=== PATIENT | female | born 2000 | race Caucasian/White ===

== ENCOUNTER 2019-10-14 11:32 | Emergency (ER) | payer OTHER, SELFPAY ==
[2019-10-14 11:42] VITALS: BP 126/88; PULSE 94; RESP 15; TEMP 37; O2SAT 100; BMI 22.6
--- NOTE | 2019-10-14 11:58 | DI.CT.S_ITS ---
PROCEDURE: CT HEAD/BRAIN WO CON INDICATIONS: hit head, ?syncope, dizzy/ lightheaded TECHNIQUE: Noncontrast 4.5 mm thick angled axial sections acquired from the foramen magnum to the vertex, with coronal and sagittal reformats. For radiation dose reduction, the following was used: automated exposure control, adjustment of mA and/or kV according to patient size. COMPARISON: [facility], CT, CT CERVICAL SPINE WO CON, 10/14/2019, 12:11. FINDINGS: Image quality: Diagnostic. There is mild streak artifact from metallic hair clips. CSF spaces: Basal cisterns are patent. No extra-axial fluid collections. Ventricles are normal in size and shape. Brain: No midline shift. No intracranial masses or hemorrhage. Capone-white matter interface is normal. Skull and face: Calvarium and visualized facial bones are intact, without suspicious lesions. Sinuses: Visualized sinuses and mastoids are clear. IMPRESSION: No acute intracranial process is seen. Dictated by: Norberto Davies M.D. on 10/14/2019 at 11:29 Approved by: Norberto Davies M.D. on 10/14/2019 at 11:30
--- NOTE | 2019-10-14 12:01 | DI.CT.S_ITS ---
PROCEDURE: CT CERVICAL SPINE WO CON INDICATIONS: c spine pain sp fall onto metal shelf TECHNIQUE: Noncontrast 3 mm thick sections acquired from the skull base to the T4 level. Sagittal and coronal reformats were then constructed. For radiation dose reduction, the following was used: automated exposure control, adjustment of mA and/or kV according to patient size. COMPARISON: [facility], CT, CT HEAD/BRAIN WO CON, 10/14/2019, 12:11. FINDINGS: Image quality: Excellent. Bones: No fractures or dislocations. Visualized superior ribs are intact. Soft tissues: Prevertebral soft tissues are normal in thickness. No paravertebral hematomas. No apical pneumothoraces. IMPRESSION: Normal study. No fracture. Dictated by: Norbetro Davies M.D. on 10/14/2019 at 11:30 Approved by: Norberto Davies M.D. on 10/14/2019 at 11:31
--- NOTE | 2019-10-14 12:10 | ED.NECK ---
HPI - Neck Pain/Injury <LORENZA Macdonald - Last Filed: 10/14/19 15:30> General Chief Complaint: Neck Pain/Injury Stated Complaint: got slammed in a metal container, door blew shut Time Seen by Provider: 10/14/19 11:48 Source: patient Mode of arrival: Ambulatory Limitations: no limitations History of Present Illness HPI Narrative: The patient is a teary female nonsmoker with history of insomnia who presents with a chief complaint of head and neck pain. 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 She states she is not sure whether not she passed out, complains of pain with the neck meets the head.She complains of dizziness, lightheadedness, nausea with no vomiting. She states that the shelf that she had was metal. She denies any numbness or tingling, denies any incontinence of bowel or bladder, and complains of midline C-spine pain. She has not taken anything to feel better. She does complain of severe headache. She was driven to the emergency department today. Related Data Previous Rx's Medication Instructions Recorded cyclobenzaprine 10 mg PO TID PRN #20 tab 10/14/19 ketorolac 10 mg PO TID PRN 5 Days #15 tab 10/14/19 Allergies Allergy/AdvReac Type Severity Reaction Status Date / Time Penicillins Allergy Verified 10/14/19 11:42 Review of Systems <LORENZA Macdonald - Last Filed: 10/14/19 15:30> Review of Systems Narrative: GENERAL: Denies chills, fatigue, malaise, fever, sweats. HEENT: Denies sinus pain, ear pain, sore throat, difficulty swallowing, dizziness. RESPIRATORY: Denies dyspnea, cough, wheezing, hemoptysis, sputum. CARDIOVASCULAR: Denies chest pain, palpitations, orthopnea, edema, GASTROINTESTINAL: Denies nausea, vomiting, abdominal pain, diarrhea, constipation, melena. : Denies dysuria, frequency, incontinence, hematuria, urinary retention. MUSCULOSKELETAL: See HPI SKIN: Denies rash, skin lesions, or other NEUROLOGIC: See HPI PSYCHIATRIC: No concerning psychosocial issues. 12 point review of systems is negative except for those stated above Exam <[facility] - Last Filed: 10/14/19 15:30> Narrative Exam Narrative: GENERAL: This is a well-nourished, well-developed patient, tearful appears anxious in C-collar HEAD: Atraumatic. Normocephalic. No temporal or scalp tenderness. EYES: Pupils equal round and reactive. Extraocular motions intact. No scleral icterus. No injection or drainage. ENT: Nose without bleeding, purulent drainage or septal hematoma. Throat without erythema, tonsillar hypertrophy or exudate. Uvula midline. Airway patent. NECK: Trachea midline. No JVD or lymphadenopathy. Supple, nontender, no meningeal signs. CARDIOVASCULAR: Regular rate and rhythm RESPIRATORY: Clear to auscultation. Breath sounds equal bilaterally. No wheezes, rales, or rhonchi. No cough. No increased respiratory effort. GASTROINTESTINAL: Abdomen soft, non-tender, nondistended. No hepato-splenomegaly, or palpable masses. No guarding. EXTREMITIES: No clubbing, cyanosis, or edema. No joint tenderness, effusion, or edema noted. BACK: Pain to midline C-spine palpation. No pain to T or L-spine palpation. No palpable deformity or crepitance. No flank tenderness. NEURO: AOx3. Clear speech. Stable gait. Strength is equal upper and lower extremities bilaterally SKIN: No rash or erythema visible skin. No erythema rash ecchymosis laceration or abrasion noted on neck or face. No periorbital ecchymosis. No Clayton signs. Initial Vital Signs Initial Vital Signs: Vital Signs Temperature 98.6 F 10/14/19 11:42 Pulse Rate 94 H 10/14/19 11:42 Respiratory Rate 15 10/14/19 11:42 Blood Pressure 126/88 10/14/19 11:42 Pulse Oximetry 100 10/14/19 11:42 <Concetta Gonzalez MD - Last Filed: 10/14/19 16:32> Initial Vital Signs Initial Vital Signs: Vital Signs Temperature 98.6 F 10/14/19 11:42 Pulse Rate 94 H 10/14/19 11:42 Respiratory Rate 15 10/14/19 11:42 Blood Pressure 126/88 10/14/19 11:42 Pulse Oximetry 100 10/14/19 11:42 Course <ANTONI Macdonald - Last Filed: 10/14/19 15:30> Orders Ordered: ED Orders 10/14/19 11:58 CT head/brain wo con Stat 10/14/19 12:01 CT cervical spine wo con Stat Discontinued Medications Cyclobenzaprine HCl (Flexeril) 10 mg PO NOW ONE Stop: 10/14/19 13:33 Last Admin: 10/14/19 13:47 Dose: 10 mg Documented by: GERMAINE Ketorolac Tromethamine (Toradol) 30 mg IM NOW ONE Stop: 10/14/19 13:33 Last Admin: 10/14/19 13:47 Dose: 30 mg Documented by: GERMAINE Vital Signs Vital signs: Vital Signs - 8 hr 10/14/19 11:42 10/14/19 13:29 10/14/19 15:07 Temperature 98.6 F Pulse Rate 94 H 71 77 Respiratory Rate 15 12 16 Blood Pressure 126/88 120/81 Blood Pressure [Left Arm] 113/70 Pulse Oximetry 100 100 <Concetta Gonzalez MD - Last Filed: 10/14/19 16:32> Orders Ordered: ED Orders 10/14/19 11:58 CT head/brain wo con Stat 10/14/19 12:01 CT cervical spine wo con Stat Discontinued Medications Cyclobenzaprine HCl (Flexeril) 10 mg PO NOW ONE Stop: 10/14/19 13:33 Last Admin: 10/14/19 13:47 Dose: 10 mg Documented by: GERMAINE Ketorolac Tromethamine (Toradol) 30 mg IM NOW ONE Stop: 10/14/19 13:33 Last Admin: 10/14/19 13:47 Dose: 30 mg Documented by: GERMAINE Vital Signs Vital signs: Vital Signs - 8 hr 10/14/19 11:42 10/14/19 13:29 10/14/19 15:07 Temperature 98.6 F Pulse Rate 94 H 71 77 Respiratory Rate 15 12 16 Blood Pressure 126/88 120/81 Blood Pressure [Left Arm] 113/70 Pulse Oximetry 100 100 MDM - Neck Pain/Injury <ANTONI Macdonald - Last Filed: 10/14/19 15:30> Lab Data Labs: Point of Care Testing Test Results Negative Urine Dip Bedside Urine Glucose Negative Bedside Urine Bilirubin - Negative Bedside Urine Ketone - Negative Urine Specific Oglesby 1.015 Bedside Urine Occult Blood + Bedside Urine pH 6.0 Bedside Urine Protein - Negative Bedside Urine Urobilinogen +/- 1mg Bedside Urine Nitrite - Negative Bedside Urine Leukocytes - Negative Esterase Imaging Data CT C-spine: Radiologist's impression: [address] [address] [address] Scan Report Signed Patient: Mayra Manning EMR#: [id number] : 2000Acct:[id number] Age/Sex: 19 / FDate of Service: 10/14/19 Loc: ED Accession Number: [id number] Procedure: CT cervical spine wo con Ordering Provider: Johnna Zepeda PROCEDURE: CT CERVICAL SPINE WO CON INDICATIONS: c spine pain sp fall onto metal shelf TECHNIQUE: Noncontrast 3 mm thick sections acquired from the skull base to the T4 level. Sagittal and coronal reformats were then constructed. For radiation dose reduction, the following was used: automated exposure control, adjustment of mA and/or kV according to patient size. COMPARISON: Located [facility], CT, CT HEAD/BRAIN WO CON, 10/14/2019, 12:11. FINDINGS: Image quality: Excellent. Bones: No fractures or dislocations. Visualized superior ribs are intact. Soft tissues: Prevertebral soft tissues are normal in thickness. No paravertebral hematomas. No apical pneumothoraces. IMPRESSION: Normal study. No fracture. Dictated by: Norberto Davies M.D. on 10/14/2019 at 11:30 Approved by: Norberto Davies M.D. on 10/14/2019 at 11:31 CT scan - head: Radiologist's impression: [facility] DATE TYPE STATUS AUTHOR Hx 10/14/19 12:01 Norberto Davies 10/14/19 11:58 Norberto Davies Mayra Manning 19, F1 [facility] ER, Main ED 167.64cm 63.503kg BMI: 22.6kg/m? Neck Pain/Injury Search Chart No Data to Display ONSET Today 15:07 Mayra Manning 19 F [address] [address] [address] Scan Report Signed Patient: Mayra Manning EMR#: [id number] : 2000Acct:[id number] Age/Sex: 19 / FDate of Service: 10/14/19 Loc: ED Accession Number: [id number] Procedure: CT head/brain wo con Ordering Provider: Johnna Zepeda PROCEDURE: CT HEAD/BRAIN WO CON INDICATIONS: hit head, ?syncope, dizzy/ lightheaded TECHNIQUE: Noncontrast 4.5 mm thick angled axial sections acquired from the foramen magnum to the vertex, with coronal and sagittal reformats. For radiation dose reduction, the following was used: automated exposure control, adjustment of mA and/or kV according to patient size. COMPARISON: Located [facility], CT, CT CERVICAL SPINE WO CON, 10/14/2019, 12:11. FINDINGS: Image quality: Diagnostic. There is mild streak artifact from metallic hair clips. CSF spaces: Basal cisterns are patent. No extra-axial fluid collections. Ventricles are normal in size and shape. Brain: No midline shift. No intracranial masses or hemorrhage. Capone-white matter interface is normal. Skull and face: Calvarium and visualized facial bones are intact, without suspicious lesions. Sinuses: Visualized sinuses and mastoids are clear. IMPRESSION: No acute intracranial process is seen. Dictated by: Norberto Davies M.D. on 10/14/2019 at 11:29 Approved by: Norberto Davies M.D. on 10/14/2019 at 11:30 MDM Narrative Medical decision making narrative: The patient is a 19-year-old female who presented to the emergency department after hitting her head on a metal shelf when a door closed on her. She thought she may have lost consciousness, complaint of dizziness, lightheadedness etc.. Given that I cannot clear her C-spine by nexus criteria, her C-spine was CT after being placed in a collar. This came back with no acute findings. Given the extensiveness of her symptoms, I did obtain a CT of her head which came back with no acute findings. However she was noted to have some repetitive questioning afterwards, indicating a possible closed head injury. I gave her a work note for several days off of work, encouraged follow-up with primary care provider in the next few days. She was given Toradol and Flexeril in the emergency department, felt much improved from her neck pain and requested to go home. I discussed at length coming back to the ER for any acute concerns. Patient has no questions or concerns upon discharge and states understanding of return precautions and follow-up care. She was discharged home with a ride. <Concetta Gonzalez MD - Last Filed: 10/14/19 16:32> Lab Data Labs: Point of Care Testing Test Results Negative Urine Dip Bedside Urine Glucose Negative Bedside Urine Bilirubin - Negative Bedside Urine Ketone - Negative Urine Specific Oglesby 1.015 Bedside Urine Occult Blood + Bedside Urine pH 6.0 Bedside Urine Protein - Negative Bedside Urine Urobilinogen +/- 1mg Bedside Urine Nitrite - Negative Bedside Urine Leukocytes - Negative Esterase Discharge Plan Departure Patient Disposition: Home Clinical Impression: Acute neck pain Closed head injury Qualifiers: Encounter type: initial encounter Qualified Code(s): S09.90XA - Unspecified injury of head, initial encounter Discharge Date/Time: 10/14/19 15:07 Instructions: DI for Closed Head Injury, DI for Neck Pain Activity Restrictions/Additional Instructions: Today your CTs of your head and neck came back with no acute findings Please follow-up with primary care provider in the next few days I have sent 2 prescriptions to [facility] in [place]. I have given you a prescription of Toradol. This is an NSAID. Do not combine it with other NSAIDs such as Aleve or ibuprofen. I suggest taking it with some food, as it can irritate your stomach. Please be aware that Flexeril the muscle lacks or can be sedating I have given you a work note Please come back to the emergency department for any acute concerns Prescriptions: New ketorolac 10 mg tablet 10 mg PO TID PRN (Reason: pain) 5 Days Qty: 15 RF: 0 cyclobenzaprine 10 mg tablet 10 mg PO TID PRN (Reason: muscle spasm) Qty: 20 RF: 0 Referrals: Sebastián Laboy [Non-Staff] - Stand Alone Forms: Work Release Note
[2019-10-14 13:29] VITALS: BP 113/70; PULSE 71; RESP 12
[2019-10-14] MEDS: KETOROLAC 60 MG/2 ML VIAL 30 MG IM (13:47)
[2019-10-14] MEDS: CYCLOBENZAPRINE 10 MG TABLET PO (13:47)
[2019-10-14 15:07] VITALS: BP 120/81; PULSE 77; RESP 16; O2SAT 100
== END 2019-10-14 15:07 | disposition home or self-care (01) ==
PROVIDERS: Emergency Provider Nurse Practitioner Family
DX: S09.90XA Unspecified injury of head, initial encounter (principal); M54.2 Cervicalgia; W22.8XXA Striking against or struck by other objects, initial encounter
CPT/HCPCS: 70450; 72125; 81003; 81025; 96372; 99283; 99284; J1885

== ENCOUNTER → 2021-03-19 14:14 | Outpatient (CLI) | payer OTHER, SELFPAY ==
[2021-03-19 15:23] LABS: Appearance Urine UA CLEAR; Bilirubin Urine UA NEGATIVE (NEGATIVE); Color Urine UA YELLOW; Glucose Urine UA NEGATIVE (Negative); Ketones Urine UA NEGATIVE (NEGATIVE); Leukocyte Esterase Urine UA NEGATIVE (NEGATIVE); Nitrite Urine UA NEGATIVE (Negative); Occult Blood Urine UA NEGATIVE (Negative); Protein Urine UA NEGATIVE (Negative); Specific Gravity Urine UA 1.025 (1.000-1.035)
[2021-03-19 15:40] LABS: pH Urine UA 6.5 (4.5-8.0)
[2021-03-19 15:46] LABS: Add Manual Diff / Slide Review NO; Basophils Absolute Auto 0 /uL (0-100); Basophils Percent Auto 0.1 % (0-2); Eosinophils Absolute Auto 0 /uL (0-450); Eosinophils Percent Auto 0.4 % (2-4); Hematocrit 36.3 % (36-46); Hemoglobin 12.4 g/dL (12.0-16.0); Lymphocytes Absolute Auto 2300 /uL (1100-4500); Lymphocytes Percent Auto 36.1 % (25-40); Mean Corpuscular HGB Conc 34.2 % (30-36); Mean Corpuscular Hemoglobin 30.2 PG (26-34); Mean Corpuscular Volume 88.3 fL (80-100); Monocytes Absolute Auto 500 /uL (0-900); Monocytes Percent Auto 7.5 % (3-14); Neutrophils Absolute Auto 3500 /uL (1500-7000); Neutrophils Percent Auto 55.9 % (50-75); Platelet Count 164 X10^3/uL (150-400); Red Blood Cell Count 4.11 X10^6/uL (4.0-5.2); Red Cell Distribution Width 12.6 % (11.6-14.8); White Blood Cell Count 6.3 X10^3/uL (4.5-11.0)
[2021-03-20 06:47] LABS: RPR Screen Non Reactive (Non Reactive)
[2021-03-20 10:36] LABS: Varicella IgG Antibody 782 index (Immune >165)
[2021-03-20 20:03] LABS: Hepatitis B Surface Antigen NEGATIVE s/c (NEGATIVE); Rubella Antibody IgG 24.3 IU/mL (>15)
[2021-03-20 20:20] LABS: HIV 1 & 2 Ab/Ag 4th Gen Combo NEGATIVE (NEGATIVE); Hep C Virus Ab w/Reflex Quant NEGATIVE s/c (NEGATIVE)
== END ==
PROVIDERS: Referring Provider Family Medicine; Visit Provider Family Medicine
DX: Z34.01 Encounter for supervision of normal first pregnancy, first trimester (principal)
CPT/HCPCS: 36415; 80055; 81003; 86787; 86803; 86850; 86900; 86901; 87086; 87389

== ENCOUNTER → 2021-05-18 16:17 | Outpatient (CLI) | payer OTHER, SELFPAY ==
[2021-05-22 19:25] LABS: AFP, Serum 51.4 ng/mL (.); Calc Gestational Age EDD (.); Estriol, Free 2.63 ng/mL (.); Inhibin A, Dimeric 113.11 pg/mL (.); Inhibin A, MoM 0.73 (.); Maternal Ethnicity Caucasian (.); Maternal Weight 156 lbs (.); Number of Fetuses No (.); OSBR Risk 1 IN 7850 (.); Results Report (.); Test Results *Screen Negative* (.); hCG, MoM 1.55 (.); hCG, Serum 40982 mIU/mL (.)
== END ==
PROVIDERS: PCP Internal Medicine; Referring Provider Family Medicine; Visit Provider Family Medicine
DX: Z34.90 Encounter for supervision of normal pregnancy, unspecified, unspecified trimester (principal); Z3A.18 18 weeks gestation of pregnancy
CPT/HCPCS: 36415; 82105; 82677; 84702; 86336

== ENCOUNTER → 2021-05-30 15:31 | Outpatient (CLI) | payer OTHER, SELFPAY ==
--- NOTE | 2021-05-30 15:33 | DI.US.S_ITS ---
PROCEDURE: US OB >= 14 WEEKS FETUS INDICATIONS: ANATOMY SCREENING OUTSIDE/PRIOR DATING DATA: Last menstrual period (LMP): 12/16/20. LMP-based estimated date of delivery (JANN): 09/22/21 . First dating scan (date and location): 05/30/21, this study . Estimated date of delivery (JANN) from first dating scan: 10/14/21 . TECHNIQUE: Real-time scanning was performed of the fetus, with image documentation and biometric measurements. Endovaginal scanning: Not needed COMPARISON: None. FINDINGS: General: A single living intrauterine gestation is present. Presentation: Breech. Placenta: Placental position is posterior , without previa. Amniotic fluid index: 10.4 cm, normal range is 5-24 cm. heart rate: 135 beats per minute. Maternal cervical canal: 3.5 cm long. Normal lower limit is 2.5 cm. biometrics: Biparietal diameter: 4.7 cm, 20 weeks 0 days Head circumference: 18.0 cm, 20 weeks 2 days Abdominal circumference: 163 mm, 21 weeks 2 days Femur length: 3.2 cm, 20 weeks 0 days Estimated gestational age from initial scan: not applicable. Composite gestational age from present scan: 20 weeks 3 days Estimated weight: 370 g Measurement variability for biometric dating: +/- 7 days from 14 weeks to 15 weeks 6 days gestation, +/- 10 days from 16 weeks to 21 weeks 6 days gestation, +/- 2 weeks from 22 weeks to 27 weeks 6 days gestation, +/- 3 weeks for 28 weeks gestation or later. weight reference: 4500 g or EFW >90/95% is considered macrosomia or large for gestational age. EFW <10% is small for gestational age. EFW 5% or less is considered intra-uterine growth restriction. Anatomic survey: Neuro: Ventricles are non-dilated at less than 10 mm. Cisterna magna is normal at 3-11 mm. Cerebellum is normal in size and morphology. Nuchal skin fold: Normal at less than 6 mm between 14-21 weeks gestational age. Face: Nose and lips, facial profile are normal. Spine: Not well seen. Heart: 4-chambered heart is present, with normal ventricular outflow tracts. Diaphragm: Diaphragm is intact. Stomach: Left-sided stomach is present. Kidneys: Not well seen. Cord: 3-vessel cord has orthotopic insertion. Bladder: Normal in size. Extremities: All 4 extremities identified. IMPRESSION: positioning results in suboptimal anatomy scan. Follow-up assessment to complete the anatomic survey is recommended to evaluate the spine and renal regions bilaterally. Dictated by: Osbaldo Bales M.D. on 05/31/2021 at 13:40 Approved by: Osbaldo Bales M.D. on 05/31/2021 at 13:44
== END ==
PROVIDERS: PCP Internal Medicine; Referring Provider Family Medicine; Visit Provider Family Medicine
DX: Z3A.20 20 weeks gestation of pregnancy; Z34.92 Encounter for supervision of normal pregnancy, unspecified, second trimester
CPT/HCPCS: 76811

== ENCOUNTER → 2021-06-14 15:59 | Outpatient (CLI) | payer OTHER, SELFPAY ==
--- NOTE | 2021-06-14 16:02 | DI.US.S_ITS ---
PROCEDURE: US OB FOLLOW UP INDICATIONS: F/U AREAS NOT VISUALIZED ON PRIOR US OUTSIDE/PRIOR DATING DATA: Last menstrual period (LMP): 12/16/2020. LMP-based estimated date of delivery (JANN): 09/22/2021 . First dating scan (date and location): 05/30/2021 . Estimated date of delivery (JANN) from first dating scan: 10/14/2021 . TECHNIQUE: Real-time scanning was performed of the fetus, with image documentation. Endovaginal scanning: No COMPARISON: [facility], , US OB >= 14 WEEKS FETUS, 05/30/2021, 14:57. FINDINGS: A single living intrauterine gestation is present. Presentation: Breech. Placenta: Placental position is posterior , without previa. Amniotic fluid index: 13.9 cm, normal range is 5-24 cm. heart rate: 147 beats per minute. Maternal cervical canal: 3.8 cm long. Normal lower limit is 2.5 cm. Estimated gestational age from initial scan: 22 weeks 4 days Normal appearance of the kidneys. Sacral spine again not well seen. . IMPRESSION: Single living IUP redemonstrated and the kidneys are within normal limits and the sacral spine is again not well seen secondary to positioning. Dictated by: Alexandro Martel RR Interpreted: Osbaldo Bales MD on 06/15/2021 at 10:34 Transcribed by: JOSE ANGEL on 06/15/2021 at 10:48 Approved by: Osbaldo Bales M.D. on 06/15/2021 at 15:09
== END ==
PROVIDERS: PCP Internal Medicine; Referring Provider Student in an Organized Health Care Education/Training Program; Visit Provider Student in an Organized Health Care Education/Training Program
DX: Z36.2 Encounter for other antenatal screening follow-up (principal); Z3A.22 22 weeks gestation of pregnancy
CPT/HCPCS: 76816

== ENCOUNTER 2021-07-09 15:45 | Outpatient (CLI) | payer OTHER, SELFPAY ==
--- NOTE | 2021-07-09 16:21 | P.TNLD_ITS ---
Visit Information Visit Information Date of evaluation: 07/09/21 Primary OB Provider: Usha Jackson Reason for Evaluation: Yes rupture of membranes Comments/Additional reasons for admission: 20yo at 25w5d here for concern for ROM. The pt reports that for the past week she has been intermittently leaking clear, odorless fluid. No cramping, vaginal bleeding. She is feeling her baby move regularly. [facility] Medical History (Updated 07/09/21 @ 17:10 by Usha Jackson MD) Anxiety (~2019) Atypical squamous cells of undetermined significance (ASCUS) on Papanicolaou smear of cervix (~08/25/20) Depression (~2019) H/O CT scan (~09/2019) Heart murmur (~99) Migraine (~2014) Nexplanon insertion Nexplanon removal (~12/27/20) Persistent insomnia (~2017) infant, growing well (~99) PTSD (post-traumatic stress disorder) (~2019) Surgical History (Updated 03/16/21 @ 12:26 by Mili Ledezma RN) [place] teeth extracted (~2017) Family History (Updated 03/16/21 @ 12:39 by Mili Ledezma RN) Mother Cervical cancer Adopted (not a blood relative) Father Myocardial infarction Hypertension Hyperlipidemia Stented coronary artery Grandmother Unknown family medical history Grandfather Unknown family medical history Grandmother No problems noted. Grandfather Diabetes mellitus Hyperlipidemia Hypertension Pacemaker Brother Diabetes mellitus Brother Deafness congenital Social History marital status: number of children: 0 household members: spouse lives independently: Yes caregiver/support person: No housing: house pets and animals: Yes (Getting a dog soon: aware of safety. 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 ) special giacomo needs: No seatbelt use: always do you feel safe at home: Yes Smoking Status: Former smoker (Quit with diagnosis.) Tobacco: How many years used: 2 second hand exposure: Yes (Her parents smoked her entire life in home & car. No current exposure. ) alcohol intake: former (Occasional, maybe once a month.) substance use type: does not use during the past year weight has: remained stable well-balanced diet: about half the time daily servings fruits/ve-4 caffeine: No Type(s) of exercise: normal ROM and activity (Active at work, lifting but nothing too heavy. ) frequency: does not exercise Evaluation Evaluation Baseline heart rate: 130 Variability: Moderate (11-25) monitor accelerations: Present Monitor Decelerations: Absent Non-invasive Membranes Rupture Test: negative Diagnosis, Plan/Disposition Final Diagnosis (1) 25 weeks gestation of : Status: Acute Plan/Disposition Plan: 20yo at 25w5d here for concern of ROM. Amniosure negative. No evidence of ROM. Safe for d/c home. OB Disposition: home
== END 2021-07-09 16:24 | disposition home or self-care (01) ==
LOC: OB 07-12 06:32
PROVIDERS: PCP Internal Medicine; Referring Provider Family Medicine; Visit Provider Family Medicine
DX: Z03.71 Encounter for suspected problem with amniotic cavity and membrane ruled out (principal); Z3A.25 25 weeks gestation of pregnancy
CPT/HCPCS: 59025; 84112; G0378; G0379

== ENCOUNTER → 2021-07-27 13:51 | Outpatient (CLI) | payer OTHER, SELFPAY ==
[2021-07-27 15:21] LABS: Add Manual Diff / Slide Review NO; Basophils Absolute Auto 0 /uL (0-100); Basophils Percent Auto 0.1 % (0-2); Eosinophils Absolute Auto 0 /uL (0-450); Eosinophils Percent Auto 0.2 % (2-4); Hematocrit 34.8 % (36-46); Hemoglobin 11.8 g/dL (12.0-16.0); Lymphocytes Absolute Auto 2500 /uL (1100-4500); Lymphocytes Percent Auto 22.4 % (25-40); Mean Corpuscular Hemoglobin 30.1 PG (26-34); Mean Corpuscular Volume 88.3 fL (80-100); Monocytes Absolute Auto 1000 /uL (0-900); Monocytes Percent Auto 8.8 % (3-14); Neutrophils Absolute Auto 7600 /uL (1500-7000); Neutrophils Percent Auto 68.5 % (50-75); Platelet Count 185 X10^3/uL (150-400); Red Blood Cell Count 3.94 X10^6/uL (4.0-5.2); Red Cell Distribution Width 12.1 % (11.6-14.8); White Blood Cell Count 11.1 X10^3/uL (4.5-11.0)
[2021-07-27 15:26] LABS: GTT (PREG) 1 Hour PP 50gm Dose 120 mg/dL (76-139)
[2021-07-27 15:36] LABS: Prothrombin Time 10.8 SECONDS (10.1-12.7)
[2021-07-27 15:38] LABS: PTT Partial Thromboplastin Tim 27 SECONDS (26.4-36.2)
== END ==
PROVIDERS: Family Medicine; PCP Internal Medicine; Referring Provider Family Medicine; Visit Provider Family Medicine
DX: Z34.90 Encounter for supervision of normal pregnancy, unspecified, unspecified trimester (principal); R23.8 Other skin changes
CPT/HCPCS: 36415; 82950; 85025; 85610; 85730

== ENCOUNTER → 2021-09-26 16:01 | Outpatient (CLI) | payer OTHER, SELFPAY ==
[2021-09-27 19:12] LABS: Strep Grp B PCR NEG for Grp B Strep
== END ==
PROVIDERS: PCP Internal Medicine; Referring Provider Family Medicine; Visit Provider Family Medicine
DX: Z3A.36 36 weeks gestation of pregnancy (principal); Z34.93 Encounter for supervision of normal pregnancy, unspecified, third trimester
CPT/HCPCS: 87653

== ENCOUNTER 2021-09-26 16:20 | Outpatient (CLI) | payer OTHER, SELFPAY ==
[2021-09-26 17:04] LABS: Add Manual Diff / Slide Review NO; Basophils Absolute Auto 0 /uL (0-100); Basophils Percent Auto 0.3 % (0-2); Eosinophils Absolute Auto 0 /uL (0-450); Eosinophils Percent Auto 0.3 % (2-4); Hematocrit 37.3 % (36-46); Hemoglobin 12.5 g/dL (12.0-16.0); Lymphocytes Absolute Auto 2200 /uL (1100-4500); Lymphocytes Percent Auto 22.2 % (25-40); Mean Corpuscular HGB Conc 33.4 % (30-36); Mean Corpuscular Hemoglobin 27.8 PG (26-34); Mean Corpuscular Volume 83.2 fL (80-100); Monocytes Absolute Auto 900 /uL (0-900); Monocytes Percent Auto 9.6 % (3-14); Neutrophils Absolute Auto 6600 /uL (1500-7000); Neutrophils Percent Auto 67.6 % (50-75); Platelet Count 186 X10^3/uL (150-400); Red Blood Cell Count 4.49 X10^6/uL (4.0-5.2); Red Cell Distribution Width 13.5 % (11.6-14.8); White Blood Cell Count 9.8 X10^3/uL (4.5-11.0)
[2021-09-26 17:16] LABS: Aspartate Aminotransferase 20 IU/L (14-36); BUN Creatinine Ratio 15.2 (6-22); Blood Urea Nitrogen 10 mg/dL (7-17); Estimated Glomerular Filt Rate > 60.0 mL/min (>60)
[2021-09-26 17:36] LABS: Creatinine Urine Random 132.3 mg/dL; Protein (Total) Urine Random 6 mg/dL (0-12); Protein Creatinine Ratio Urine 0.04 GRAM/24H
== END 2021-09-26 17:39 | disposition home or self-care (01) ==
LOC: OB 09-27 13:27
PROVIDERS: PCP Internal Medicine; Referring Provider Family Medicine; Visit Provider Family Medicine
DX: O47.1 False labor at or after 37 completed weeks of gestation (principal); Z34.93 Encounter for supervision of normal pregnancy, unspecified, third trimester; Z3A.37 37 weeks gestation of pregnancy; Z3A.36 36 weeks gestation of pregnancy
CPT/HCPCS: 36415; 59025; 82570; 84156; 84450; 84550; 85025; 86850; 86900; 86901; 87653; G0378; G0379

== ENCOUNTER 2021-10-10 18:02 | Inpatient (IN) | payer OTHER, SELFPAY ==
[2021-10-10 19:24] VITALS: BP 131/78
[2021-10-10] MEDS: ZOLPIDEM 5 MG TABLET 10 MG PO (22:12)
[2021-10-11] VITALS (7 sets, daily range): BP systolic 112–122; BP diastolic 67–74; PULSE 79–96; RESP 12–16; TEMP 36.2–36.6; O2SAT 97–98
[2021-10-11] MEDS: miSOPROStoL 25 MCG TABLET 50 MCG PO (01:35)
[2021-10-11] MEDS: LACTATED RINGERS 1,000 ML 100 ML IV ×4 (04:32→21:30)
--- NOTE | 2021-10-11 09:24 | PM.OBHP.IH.1 ---
OB HPI Date/Time Date of admission: 10/10/21 Date Patient Seen: 10/11/21 History of Present Condition Chief complaint: Induction JANN Calculator Estimated Delivery Date Method Current WG Current Estimate 10/17/21 Manual 39w 1d Final JANN - ALENA Other Estimates 09/22/21 LMP (Uncertain) 42w 5d 10/17/21 Ultrasound #1 39w 1d 10/11/21 Ultrasound #2 40w 0d Estimated Gestational Age (weeks): 39w1d : 1 Para: 0 Narrative: 21yo at 39w1d here for elective IOL. She has been feeling minimal cramping but no significant contractions, LOF, or vaginal bleeding. She is feeling her baby move regularly. Her was only complicated by anxiety/depression, for which she was seeing a counselor but has not been on medications. care: good care, initiated at week # (9) and pounds weight gain (54) Dating criteria OB: based on 1st trimester US only Ultrasounds: normal 1st trimester US and normal mid trimester US Obstetrical complications: none Medical complications OB: psychiatric (anxiety/depression) Indications Indication for induction OB: other (elective) Preadmission Labs Last OB Lab Results: Blood Type O Positive 10/10/21 18:40 10/10/21 Antibody Screen Negative 10/10/21 18:40 10/10/21 Hematocrit 37.3 % (36-46) 09/26/21 16:47 09/26/21 Hemoglobin 12.5 g/dL (12.0-16.0) 09/26/21 16:47 09/26/21 Hepatitis B Surface Antigen Negative s/c (NEGATIVE) 03/19/21 14:24 03/19/21 Hepatitis C Antibody Negative s/c (NEGATIVE) 03/19/21 14:24 03/19/21 Rubella Antibody 24.3 IU/mL (>15) 03/19/21 14:24 03/19/21 Varicella-Zoster IgG Antibody 782 index (Immune >165) 03/19/21 14:24 03/19/21 Glucose 1 Hour 120 mg/dL (76-139) 07/27/21 15:00 07/27/21 Group B Streptococcus (PCR) Neg for grp b strep 09/26/21 16:01 09/26/21 -: Urine: negative Genetic Screens: Quad screen: Normal External Labs -: Urine: negative Evaluation Evaluation Baseline heart rate: 130 Variability: Moderate (11-25) monitor accelerations: Present Monitor Decelerations: Absent Contraction Frequency (minutes): 3 Uterine Contraction Intensity: Mild Status: Category l Dilation (cm): 1 Effacement (%): 50 Dilation: 1-2 cm Effacement: 40-50% station: -2 Position of cervix: posterior Consistency: soft Braga score: 5 PFSH Medical History (Updated 08/31/21 @ 14:44 by Usha Jackson MD) Anxiety (~2019) Atypical squamous cells of undetermined significance (ASCUS) on Papanicolaou smear of cervix (~08/25/20) Depression (~2019) H/O CT scan (~09/2019) Heart murmur (~99) Migraine (~2014) Nexplanon insertion Nexplanon removal (~12/27/20) Persistent insomnia (~2017) , growing well (~99) PTSD (post-traumatic stress disorder) (~2019) Surgical History (Updated 03/16/21 @ 12:26 by iMli Ledezma RN) [place] teeth extracted (~2017) Family History (Updated 10/01/21 @ 22:47 by Veronica Baldwin) Mother Cervical cancer Adopted (not a blood relative) Mental health problem Father Myocardial infarction Hypertension Hyperlipidemia Stented coronary artery Grandmother Unknown family medical history Grandfather Unknown family medical history Grandmother No problems noted. Grandfather Diabetes mellitus Hyperlipidemia Hypertension Pacemaker Brother Diabetes mellitus Hypertension Hyperlipidemia Brother Deafness congenital Social History marital status: number of children: 0 household members: spouse lives independently: Yes caregiver/support person: No housing: house pets and animals: Yes (Getting a dog soon: aware of safety. 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 ) special giacomo needs: No seatbelt use: always do you feel safe at home: Yes Smoking Status: Former smoker Tobacco: How many years used: 2 second hand exposure: Yes (Her parents smoked her entire life in home & car. No current exposure. ) alcohol intake: former substance use type: does not use during the past year weight has: remained stable well-balanced diet: about half the time daily servings fruits/ve-4 caffeine: No Type(s) of exercise: normal ROM and activity frequency: does not exercise Meds Home Medications and Allergies Home Medications Medication Instructions Recorded Confirmed Type prenat.vits,kolby,bnw-nacx-husqy 1 tab PO DAILY 03/14/21 08/10/21 History iron 18 mg tablet 18 mg PO DAILY 03/16/21 08/10/21 History breast pump #1 ea 08/31/21 08/31/21 Rx Allergies Allergy/AdvReac Type Severity Reaction Status Date / Time amoxicillin Allergy Intermediate Rash Verified 08/10/21 15:22 celecoxib Allergy Intermediate Rash Verified 08/10/21 15: Penicillins Allergy Intermediate Dermatitis; Verified 08/10/21 15: Rash OB Exam Narrative Exam Narrative: Gen: NAD, sitting comfortably in bed, appears well CV: RRR, no murmurs Resp: clear to auscultation bilaterally Abd: soft, nontender, gravid : fetus vertex Ext: trace edema Assessment and Plan Assessment and Plan Assessment and Plan narrative: 21yo at 39w1d here for elective IOL. Uncomplicated . GBS negative, Rh positive. Received single dose of cytotec overnight. Pt intermittently with Category II tracing due to minimal variability. - Expectant management, anticipate - Chase placed after informed consent obtained due to Braga score of 5, inflated with 60cc NS. Plan to start low dose pitocin after pt eats breakfast. Will leave in place for at most 12 hours, gently pulling every hour to ensure has not fallen out into the vagina. - FHT overall reassuring, but will continue to monitor closely due to intermittent minimal variability - Pt desires natural methods for pain control - GBS negative, no prophylaxis indicated
[2021-10-11] MEDS: OXYTOCIN PREMIX 30 UNIT/500 ML PLAST..BAG IV (10:06)
[2021-10-11 11:52] LABS: COVID19 - ADMIT (NP swab/PCR) Negative (Negative)
--- NOTE | 2021-10-11 12:20 | PM.OBPNLAB ---
Date/Time Date Patient Seen: 10/11/21 Time Patient Seen: 12:15 Pain Control Pain control: tolerating well Pelvic Exam Dilation (cm): 4 Effacement (%): 80 station: -2 Amniotic membrane status: Ruptured Comments: After informed consent, AROM performed with production of clear fluid Contractions Contractions on admission: none Monitor mode: External Pitocin rate (mU/min): 4 Contraction frequency (min): 3 Contraction intensity: Moderate Status status: Category l Heart Rate Baseline: 130 Monitor Accelerations: Present Monitor Decelerations: Absent Monitor Variability: Moderate Assessment and Plan Comments: 21yo at 39w1d here for elective IOL.? Uncomplicated .? GBS negative, Rh positive.? Received single dose of cytotec overnight.? Chase catheter placed, and fell out after 2 hours. AROM performed with production of clear fluid. - Expectant management, anticipate - Continue pitocin, titrate as tolerated - FHT overall reassuring, but will continue to monitor closely due to intermittent minimal variability - Pt desires natural methods for pain control - GBS negative, no prophylaxis indicated
--- NOTE | 2021-10-11 15:11 | PM.OBPNLAB ---
Date/Time Date Patient Seen: 10/11/21 Time Patient Seen: 02:50 Pain Control Pain control: tolerating well Pelvic Exam Dilation (cm): 5 Effacement (%): 80 station: -1 Amniotic membrane status: Ruptured Contractions Monitor mode: External Pitocin rate (mU/min): 6 Contraction frequency (min): 3 Contraction pattern: Regular Contraction intensity: Strong/Firm Status status: Category ll Heart Rate Baseline: 130 Comments: minimal to moderate variability, early vs late decels, infrequent accels Assessment and Plan Comments: 21yo at 39w1d here for elective IOL.? Uncomplicated .? GBS negative, Rh positive.? Received single dose of cytotec overnight.? Chase catheter placed, and fell out after 2 hours.? AROM performed with production of clear fluid. Now on pitocin. monitoring frequently with minimal and intermittently moderate variability, and now with decels difficult to discern late vs early as not picking up contractions well. IUPC placed to help determine nature of decelerations. - Expectant management, anticipate - Continue pitocin, titrate as tolerated with goal of 200 MVUs - FHT Category II, will continue to monitor closely. Did start discussion with pt regarding nature of tracing, potential need for intervention. - Since placement of IUPC, no significant decels - Pt desires natural methods for pain control - GBS negative, no prophylaxis indicated
--- NOTE | 2021-10-11 16:48 | PM.OBPNLAB ---
Date/Time Date Patient Seen: 10/11/21 Time Patient Seen: 16:48 Pain Control Pain control: tolerating well Pelvic Exam Dilation (cm): 5 Effacement (%): 90 station: -1 Amniotic membrane status: Ruptured Contractions Monitor mode: External Contraction frequency (min): 3 Contraction pattern: Regular Contraction intensity: Strong/Firm Intrauterine tone measurement: 250 Status status: Category ll Monitor Accelerations: Absent Monitor Decelerations: Late Monitor Variability: Moderate Assessment and Plan Comments: 21yo at 39w1d here for elective IOL.? Uncomplicated .? GBS negative, Rh positive.? Received single dose of cytotec overnight.? Chase catheter placed, and fell out after 2 hours.? AROM performed with production of clear fluid.? Pitocin turned off due to recurrent late decelerations, which have unfortunately persisted off pitocin as well, not responsive to fluid bolus and position changes. Moderate variability interspersed with prolonged periods of minimal variability still. Due to nonreassuring heart tones, the decision was made to proceed with primary . Risks vs benefits of surgery were discussed. Risks of surgery including but not limited to bleeding/hemorrhage, infection, injury to other organs such as bowel and bladder, injury to fetus were discussed. The pt is okay with a blood transfusion if medically necessary. The pt agreed to surgery, and the consent was signed and placed in her chart. She will receive 2g of Ancef prior to surgery, and have SCDs placed.
--- NOTE | 2021-10-11 16:55 | PM.PREOP ---
Pre-operative Note Interval Note History & Physical reviewed/Exam performed by Physician: Yes Changes to H&P: No
[2021-10-11] MEDS: CEFAZOLIN 2 GM/20 ML SYRINGE IV (17:15)
--- NOTE | 2021-10-11 17:40 | SUR.OPER ---
Female delivered via section at 17:35. Cord blood vials x2 and placenta sent with L&D RN.
--- NOTE | 2021-10-11 17:41 | SUR.OPER ---
Supine on Padded OR bed, head on pillow, safety belt at thigh, arms secured on padded arm boards at <90 degrees abduction. Bump under right buttock. Legs uncrossed with pillow under knees, gel pad to heels, tape over blanket to lower legs.
--- NOTE | 2021-10-11 18:35 | PM.OBCS.1 ---
Operative Date/Time/Diagnoses Date of procedure: 10/11/21 Time of procedure: 15:30 Pre-op diagnosis: Nonreassuring heart tones 39w1d gestation GBS negative Rh positive Post-op diagnosis: same Procedure & Clinicians Procedure: Primary Same procedure as scheduled: Yes Indications: Nonreassuring heart tones Surgeon: Usha Jackson Click Yes if Unassisted: No Data Support Analyst: Marlen Alexandra Anesthesia Type: Spinal Operative Notes Findings: Normal uterus, ovaries, and tubes Closure Type: primary Specimen(s): cord pH Intraoperative meds administered: Duramorph and Pitocin Applied: Catheter Estimated Blood Loss (mL): 500 Blood products transfused: none Procedure in detail: OPERATIVE COURSE: The patient was taken to the operating room where spinal anesthesia was placed. She was then prepared and draped in the normal sterile fashion in the dorsal supine position with a leftward tilt. Anesthesia was tested and found to be adequate. A Pfannensteil skin incision was then made with the scalpel and carried through to the underlying layer of fascia with the scalpel. The fascia was incised in the midline and the incision extended laterally with the Umaña scissors. The superior aspect of the fascial incision was then grasped with Chery clamps, elevated with the help of the certified ophthalmic surgical assistant, and the underlying rectus muscles dissected off bluntly and sharply where needed. Attention was then turned to the inferior aspect of the incision which, in a similar fashion, was grasped, tented up with Chery clamps, and the rectus muscle dissected off bluntly and sharply with Umaña scissors. The rectus muscles were then in the midline, and the peritoneum was identified and entered bluntly. The peritoneal incision was then extended with good visualization of the bladder. Retraction was provided by the certified ophthalmic surgical assistant. The bladder blade was then inserted and the vesicouterine peritoneum identified, grasped with pick-ups and entered sharply with the Metzenbaum scissors. The incision was then extended laterally and the bladder flap created digitally. The bladder blade was then reinserted and the lower uterine segment incised in a transverse fashion with the scalpel, with the certified ophthalmic surgical assistant providing suction. The uterine incision was then extended superolaterally by pulling superolaterally on both sides. The bladder blade was removed the infant's head was flexed out of JERMAINE position and delivered atraumatically, with fundal pressure by the certified ophthalmic surgical assistant. Nuchal cord x 1 was noted. The nose and mouth were suctioned with bulb suction and the cord was clamped and cut. The was handed off to the waiting nursing staff. The infant did not cry spontaneously immediately after , and appears quite pale. Cord gases were sent. The cried with vigorous stimulation, and never required any additional support. The placenta was then delivered with gentle cord traction. The uterus was then exteriorized and cleared of all clots and debris. The uterine incision was repaired with O-Vicryl in a running, locked fashion. A second layer of the same suture was used to obtain excellent hemostasis. The uterus was returned to the abdomen. The gutters were cleared of all clots. Hysterotomy was investigated and found to be hemostatic. The peritoneum was closed with 3-O Vicryl. The fascia was reapproximated with O-Vicryl in a running fashion. The subcutaneous tissue was reapproximated with 3-O Vicryl. The skin was closed with 4-O Vicryl. The certified ophthalmic surgical assistant helped with retraction during closures. BABY A DELIVERY TIME: 17:35 COMPLICATIONS: None SPONGE AND NEEDLE COUNTS: Correct x3. DRESSING: Aquacel ANTICOAGULATION: SCDs applied prior to Surgery: Yes Preop antibiotics given (see MAR). The patient was taken to recovery room having tolerated procedure well. Complications: none Baby 1: Infant Gender: Female Presentation: vertex Position: Right Occiput Anterior Placental Delivery Description: Spontaneous Cord Vessel Description: 3 Vessels and Nuchal Cord score (1 min): 7 score (5 min): 9 weight: 6 lb 13.984 oz Post-operative Condition: stable Disposition: PACU Aftercare: routine postop
[2021-10-11] MEDS: diphenhydrAMINE 50 MG/ML VIAL 25 MG IV (21:29)
[2021-10-12] MEDS: KETOROLAC 30 MG/ML VIAL IV ×3 (00:46→13:14)
[2021-10-12] MEDS: LANOLIN OINT 7 GM 1 APPLIC TOP (00:49)
[2021-10-12 08:06] LABS: Add Manual Diff / Slide Review NO; Basophils Absolute Auto 0 /uL (0-100); Basophils Percent Auto 0.1 % (0-2); Eosinophils Absolute Auto 0 /uL (0-450); Eosinophils Percent Auto 0.2 % (2-4); Hematocrit 32.7 % (36-46); Lymphocytes Absolute Auto 2400 /uL (1100-4500); Lymphocytes Percent Auto 18.4 % (25-40); Mean Corpuscular HGB Conc 33.7 % (30-36); Mean Corpuscular Hemoglobin 27.8 PG (26-34); Mean Corpuscular Volume 82.5 fL (80-100); Monocytes Absolute Auto 1400 /uL (0-900); Monocytes Percent Auto 10.6 % (3-14); Neutrophils Absolute Auto 9100 /uL (1500-7000); Neutrophils Percent Auto 70.7 % (50-75); Platelet Count 162 X10^3/uL (150-400); Red Blood Cell Count 3.96 X10^6/uL (4.0-5.2); Red Cell Distribution Width 13.8 % (11.6-14.8); White Blood Cell Count 12.9 X10^3/uL (4.5-11.0)
[2021-10-12] MEDS: DOCUSATE 100 MG CAPSULE 200 MG PO (10:13)
[2021-10-12] MEDS: PRENATAL VIT,CALC/IRON/FOLIC 1 TABLET 1 TAB PO (10:14)
[2021-10-12] MEDS: OXYCODONE/ACETAMINOPHEN 5/325 TABLET 1 TAB PO (10:15)
--- NOTE | 2021-10-12 12:39 | P.PNOB_ITS ---
Subjective - OB Subjective Date Patient Seen: 10/12/21 Time Patient Seen: 08:00 Interval history: Pt reports she is doing well. Her araiza was removed this morning, and she has ambulated and voided. Her pain is well controlled. She has not yet passed flatus. She is with good latch. Exam Vital Signs (past 8 hours): Oxygen Delivery Method Room Air Resp Auscultation: clear to auscultation bilaterally Cardio Rate: regular rate Rhythm: regular rhythm Heart Sounds: S1 normal, S2 normal and no murmurs GI Inspection: non-distended and incision (dressing c/d/i) Palpation: soft, No guarding and tender (appropriately tender) Auscultation: normal bowel sounds Other: fundus firm and below the umbilicus Extrem Right upper extremity: No no edema Objective Labs Result Diagrams: 10/12/21 07:42 Labs: Laboratory Results - last 24 hr 10/12/21 07:42 WBC 12.9 H RBC 3.96 L Hgb 11.0 L Hct 32.7 L MCV 82.5 MCH 27.8 MCHC 33.7 RDW 13.8 Plt Count 162 Neut % (Auto) 70.7 Lymph % (Auto) 18.4 L Anson % (Auto) 10.6 Eos % (Auto) 0.2 L Baso % (Auto) 0.1 Neut # (Auto) 9100 H Lymph # (Auto) 2400 Anson # (Auto) 1400 H Eos # (Auto) 0 Baso # (Auto) 0 Assessment & Plan Assessment and Plan (1) S/P : Status: Acute (2) Non-reassuring heart tones complicating , antepartum: Status: Acute Plan Comments: Pt is a 21yo POD#1 s/p primary for nonreassuring heart tones without complications. Pt doing well. - Normal care - support - Encourage ambulation today Time Spent With Patient Time: Total time spent is greater than 50% in coordination of care (as documented) at patient's floor/unit and/or counseling patient: Time with patient: less than 15 minutes
[2021-10-12] MEDS: ACETAMINOPHEN 325 MG TABLET 650 MG PO (17:59)
[2021-10-12] MEDS: OXYCODONE IR 5 MG TABLET PO (23:15)
[2021-10-12] MEDS: IBUPROFEN 600 MG TABLET PO (23:15)
[2021-10-13] MEDS: ACETAMINOPHEN 325 MG TABLET 650 MG PO ×3 (01:05→12:57)
[2021-10-13] MEDS: IBUPROFEN 600 MG TABLET PO ×2 (06:52→12:58)
[2021-10-13] MEDS: OXYCODONE IR 5 MG TABLET PO ×2 (06:52→12:57)
[2021-10-13] MEDS: PRENATAL VIT,CALC/IRON/FOLIC 1 TABLET 1 TAB PO (09:59)
[2021-10-13] MEDS: DOCUSATE 100 MG CAPSULE 200 MG PO (10:00)
--- NOTE | 2021-10-13 11:13 | PM.OBDS.1 ---
Discharge Providers Provider Date of admission: 10/10/21 18:02 Discharge Date: 10/13/21 Primary care physician: Micheline Cleary MD Consults: 10/11/21 19:00 Consult to Drapery And Upholstery Estimator Routine Comment: Discharge provider: Marlen Alexandra DO Summary Hospital Course Date Patient Seen: 10/13/21 Time Patient Seen: 11:48 Diagnoses: 39 weeks of intolerance of labor Status post low-transverse section Hospital Course: 21-year-old after primary section for nonreassuring heart tones without complications. Patient was brought in for elective induction and progressed after Cytotec, Chase bulb and Pitocin however developed nonreassuring heart tones prompting section. was slow to cry after delivery but ultimately did well without resuscitation beyond drying and stimulating. course has been uncomplicated. She is ambulating, voiding and tolerating a diet. Vaginal bleeding is light. Pain controlled with ibuprofen, acetaminophen and oxycodone. is going well, no issues in the . Patient was advised to call for fevers, severe pain or bleeding through more than a pad an hour. She will follow-up in clinic in 1 week for Aquacel dressing removal. Peripartum Data Delivery Method: Section 1: Gender: Female Disposition of : home Discharge Diagnosis (1) S/P : Status: Acute (2) Non-reassuring heart tones complicating , antepartum: Status: Acute Status at Discharge Cognitive/behavioral status at discharge: at baseline, oriented Functional status at discharge: independent ambulation Overall status at discharge: patient is progressing back to baseline Time Spent with Patient Time attestation: Total time spent providing and/or coordinating discharge services: Time spent: Less than 30 minutes Objective Labs Result Diagrams: 10/12/21 07:42 Exam Vital Signs (past 8 hours): Oxygen Delivery Method Room Air Narrative Exam Narrative: General: Awake and alert, no acute distress. HEENT: NCAT, EOMI, moist oral mucosa CV: Regular rate and rhythm, no murmurs, rubs or gallops Lungs: CTAB, no wheezes, rales, or rhonchi Abdomen: Aquacel dressing intact without drainage. Soft, nontender; bowel tones active; uterus firm 1 cm below umbilicus Extremities: Warm, no edema bilaterally Discharge Plan Discharge Plan Patient Disposition: Home Discharge orders & Medications Prescriptions: New docusate sodium 100 mg Capsule 200 mg PO DAILY Qty: 30 0RF ibuprofen 600 mg Tablet 600 mg PO Q6H PRN (Reason: Fever/Mild Pain (1-3)) Qty: 30 0RF oxycodone 5 mg Tablet 5 mg PO Q4H PRN (Reason: Pain, Moderate (4-6)) Qty: 20 0RF Continued (DME) breast pump Device See Rx Instructions .ROUTE .MEDSUPPLY Qty: 1 0RF Rx Instructions: As directed prenat.vits,kolby,[id number] Tablet 1 tab PO DAILY 0RF iron 18 mg tablet 18 mg PO DAILY 0RF Follow up/Referrals: Colin Jensen MD [Physician] - 10/18/21 11:00 am Micheline Cleary MD [Primary Care Provider] - Diet/Activity/Treatments Diet: Diet as Tolerated Skin/Wound/Dressing Care Report to your healthcare provider any signs of infection, such as:: chills, fever, night sweats, increased pain, unusual drainage and unusual redness Visit Report/Discharge Packet Stand Alone Forms: Discharge: Care Visit Report Forms: Patient Portal/API, Stroke Signs & Symptoms Discharge Data Primary Care Provider: Micheline Cleary
[2021-10-13 11:42] VITALS: BP 118/82; PULSE 82; RESP 16; TEMP 36.8
== END 2021-10-13 13:40 | disposition home or self-care (01) | DRG 788 ==
PROVIDERS: Admitting Provider Family Medicine; PCP Internal Medicine; Referring Provider Family Medicine; Visit Provider Family Medicine
PROC: 10D00Z1 Extraction of Products of Conception, Low, Open Approach (ICD-10-PCS; CPT 59514; principal; 2021-10-11 18:00)
DX: O76 Abnormality in fetal heart rate and rhythm complicating labor and delivery (principal); Z3A.39 39 weeks gestation of pregnancy; Z37.0 Single live birth; O69.81X0 Labor and delivery complicated by cord around neck, without compression, not applicable or unspecified; O99.344 Other mental disorders complicating childbirth; F41.8 Other specified anxiety disorders; Z20.822 Contact with and (suspected) exposure to COVID-19
CPT/HCPCS: 36415; 59050; 59510; 59514; 85025; 87635; C9803; J0690; J1200; J1885; J2250; J2274; J2405; J2590

== ENCOUNTER 2022-03-25 07:28 | Emergency (ER) | payer OTHER, SELFPAY ==
[2022-03-25 07:35] VITALS: PULSE 127; O2SAT 97
[2022-03-25 07:44] VITALS: BP 127/82; PULSE 127; RESP 20; TEMP 37.7; O2SAT 99; BMI 25.8
[2022-03-25] MEDS: SODIUM CHLORIDE 0.9% 1,000 ML 1000 ML IV (07:51)
[2022-03-25] MEDS: ONDANSETRON 4 MG/2 ML INJ IV (07:51)
[2022-03-25 07:52] LABS: Add Manual Diff / Slide Review NO; Basophils Absolute Auto 0 /uL (0-100); Basophils Percent Auto 0.2 % (0-2); Eosinophils Absolute Auto 0 /uL (0-450); Eosinophils Percent Auto 0.2 % (2-4); Hematocrit 44.3 % (36-46); Hemoglobin 15.2 g/dL (12.0-16.0); Lymphocytes Absolute Auto 600 /uL (1100-4500); Lymphocytes Percent Auto 8.1 % (25-40); Mean Corpuscular HGB Conc 34.3 % (30-36); Mean Corpuscular Hemoglobin 28.3 PG (26-34); Mean Corpuscular Volume 82.4 fL (80-100); Monocytes Absolute Auto 400 /uL (0-900); Neutrophils Absolute Auto 6500 /uL (1500-7000); Neutrophils Percent Auto 86.5 % (50-75); Platelet Count 199 X10^3/uL (150-400); Red Blood Cell Count 5.37 X10^6/uL (4.0-5.2); Red Cell Distribution Width 13.3 % (11.6-14.8); White Blood Cell Count 7.6 X10^3/uL (4.5-11.0)
[2022-03-25 07:58] LABS: Alanine Aminotransferase 20 IU/L (<35); Albumin 4.8 g/dL (3.5-5.0); Albumin Globulin Ratio 1.4 (1.0-2.8); Alkaline Phosphatase 79 U/L (38-126); Aspartate Aminotransferase 24 IU/L (14-36); BUN Creatinine Ratio 22.7 (6-22); Blood Urea Nitrogen 17 mg/dL (7-17); Calcium 9.4 mg/dL (8.4-10.2); Carbon Dioxide 21 mmol/L (22-32); Chloride 105 mmol/L (98-107); Estimated Glomerular Filt Rate > 60 mL/min (>60); Globulin 3.5 g/dL (1.7-4.1); Glucose 115 mg/dL (70-100); HEMOLYSIS < 15 (0-50); Lipase 33 U/L (23-300); Sodium 137 mmol/L (137-145); Total Protein 8.3 g/dL (6.3-8.2)
[2022-03-25 08:00] VITALS: BP 103/75; PULSE 102; O2SAT 97
[2022-03-25 08:28] LABS: Influenza A - CEPHEID Flu A NEGATIVE (NEGATIVE); Influenza B - CEPHEID Flu B NEGATIVE (NEGATIVE); Respiratory Syncytial Virus Negative (Negative)
[2022-03-25 08:29] LABS: COVID-19 CEPHEID PCR (VTM/NP) Negative (Negative)
[2022-03-25 08:30] VITALS: BP 104/70; PULSE 103; O2SAT 98
--- NOTE | 2022-03-25 08:54 | ED_ITS ---
HPI - Nausea/Vomiting/Diarrhea General Chief complaint: Nausea/Vomiting/Diarrhea Stated complaint: Vomiting/diarrhea Time Seen by Provider: 03/25/22 08:54 Source: patient Mode of arrival: Ambulatory Limitations: no limitations History of Present Illness HPI Narrative: This is a 21-year-old female who presents with vomiting and diarrhea that started in the last 12 hours. Patient states her stomach felt sort of bubbly and had discomfort last night. She had multiple episodes of vomiting and now dry heaving, she had multiple episodes of watery diarrhea. Patient has not had any fevers. She did have some abdominal discomfort. No flank pain. No dysuria, urgency or frequency. No new vaginal bleeding or discharge. Patient is otherwise healthy, no daily medication she has had a 6 months ago and is currently . Patient denies tobacco, alcohol or illicit. She used tobacco formally. Her is also starting to develop symptoms as well. Their 6-month-old has not had any so far. Related Data Home Medications Medication Instructions Recorded Confirmed prenat.vits,kolby,[id number] 1 tab PO DAILY 03/14/21 12/18/21 iron 18 mg tablet 18 mg PO DAILY 03/16/21 12/18/21 Previous Rx's Medication Instructions Recorded breast pump #1 ea 08/31/21 ondansetron 4 mg disintegrating 4 mg PO Q6H PRN #10 tab 03/25/22 tablet ondansetron 4 mg disintegrating 4 mg PO Q6H PRN #10 tab 03/25/22 tablet vancomycin 125 mg capsule 125 mg PO QID 10 Days #40 cap 03/25/22 Allergies Allergy/AdvReac Type Severity Reaction Status Date / Time amoxicillin Allergy Intermediate Rash Verified 12/18/21 14:41 celecoxib Allergy Intermediate Rash Verified 12/18/21 14:41 Penicillins Allergy Intermediate Dermatitis; Verified 12/18/21 14:41 Rash Review of Systems Review of Systems ROS Unobtainable: All systems reviewed & are unremarkable except as noted in HPI and below Patient History Medical History Anxiety (~2019) Atypical squamous cells of undetermined significance (ASCUS) on Papanicolaou smear of cervix (~08/25/20) Depression (~2019) H/O CT scan (~09/2019) Heart murmur (~99) Migraine (~2014) Nexplanon insertion Nexplanon removal (~12/27/20) Persistent insomnia (~2017) infant, growing well (~99) PTSD (post-traumatic stress disorder) (~2019) Surgical History S/P [place] teeth extracted (~2017) Family History Mother Cervical cancer Adopted (not a blood relative) Mental health problem Father Myocardial infarction Hypertension Hyperlipidemia Stented coronary artery Grandmother Unknown family medical history Grandfather Unknown family medical history Grandmother No problems noted. Grandfather Diabetes mellitus Hyperlipidemia Hypertension Pacemaker Brother Diabetes mellitus Hypertension Hyperlipidemia Brother Deafness congenital Social History marital status: number of children: 0 household members: spouse lives independently: Yes caregiver/support person: No housing: house pets and animals: Yes (Getting a dog soon: aware of safety. 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 ) special giacomo needs: No seatbelt use: always do you feel safe at home: Yes Smoking Status: Former smoker Tobacco: How many years used: 2 second hand exposure: Yes (Her parents smoked her entire life in home & car. No current exposure. ) alcohol intake: former substance use type: does not use during the past year weight has: remained stable well-balanced diet: about half the time daily servings fruits/ve-4 caffeine: No Type(s) of exercise: normal ROM and activity frequency: does not exercise Smoking Status: Former smoker Exam Narrative Exam Narrative: GENERAL: Alert and oriented x three, female in mild distress. HEENT: Head normocephalic, atraumatic, EOMI, pupils reactive, face symmetric, moist mucous membranes NECK: Supple, full range of motion CARDIOVASCULAR: Regular rate and rhythm without murmurs, rubs or gallops. RESPIRATORY: Breath sounds equal bilaterally, no wheezes rales or rhonchi. ABDOMEN: Soft, nontender. Normoactive bowel sounds all 4 quadrants. No guarding or rebound, rigidity, no mass : No CVA tenderness EXTREMITIES: Normal range of motion, no clubbing or edema. Neurovascularly inta ct NEUROLOGICAL: Cranial nerves II through XII grossly intact. Moving all extremities. Normal gait. SKIN: Warm, dry, no petechiae, no rashes or lesions. Initial Vital Signs Initial Vital Signs: Vital Signs Pulse Rate 127 H 03/25/22 07:35 Pulse Oximetry 97 03/25/22 07:35 Course Orders Ordered: ED Orders 03/25/22 07:37 Complete Blood Count AUTO DIFF Stat Comprehensive Metabolic Panel Stat Covid-19 + FLU A/B + RSV - PCR Stat Lipase Stat 03/25/22 08:47 Ictotest Urine Stat Urine Microscopic Stat 03/25/22 08:50 GI Panel (Film Array) Stat Discontinued Medications Sodium Chloride (Normal Saline 0.9%) 1,000 mls @ 1,000 mls/hr IV BOLUS ONE Stop: 03/25/22 08:42 Last Infusion: 03/25/22 08:44 Dose: 0 mls/hr Documented by: Admin: 03/25/22 07:51 Dose: 1,000 mls/hr Documented by: LORENA Ondansetron HCl (Ondansetron 4 Mg/2 Ml Inj) 4 mg IV NOW ONE Stop: 03/25/22 07:44 Last Admin: 03/25/22 07:51 Dose: 4 mg Documented by: LORENA Reevaluation(s) Reevaluation #1: Attempted to call patient regarding patient's GI panel results, she is positive for norovirus as well as positive for C diff. Confirmatory testing is sent but will take several days. Patient does have working cell phone but voicemail was full. Message was left she has a post recontact me at noon. I also called patient's 's number and unable to get through. Time: 10:54 Vital Signs Vital signs: Vital Signs - 8 hr 03/25/22 07:35 03/25/22 07:44 03/25/22 08:00 Temperature 99.9 F H Pulse Rate 127 H 127 H 102 H Respiratory Rate 20 Blood Pressure 127/82 103/75 Pulse Oximetry 97 99 97 03/25/22 08:30 Temperature Pulse Rate 103 H Respiratory Rate Blood Pressure 104/70 Pulse Oximetry 98 MDM - Nausea/Vomiting/Diarrhea Lab Data Result diagrams: 03/25/22 07:37 03/25/22 07:37 Labs: Lab Results 03/25/22 03/25/22 03/25/22 Range/Units 07:37 07:37 07:37 WBC 7.6 (4.5-11.0) X10^3/uL RBC 5.37 H (4.0-5.2) X10^6/uL Hgb 15.2 (12.0-16.0) g/dL Hct 44.3 (36-46) % MCV 82.4 (80-100) fL MCH 28.3 (26-34) PG MCHC 34.3 (30-36) % RDW 13.3 (11.6-14.8) % Plt Count 199 (150-400) X10^3/uL Neut % (Auto) 86.5 H (50-75) % Lymph % (Auto) 8.1 L (25-40) % [place] % (Auto) 5.0 (3-14) % Eos % (Auto) 0.2 L (2-4) % Baso % (Auto) 0.2 (0-2) % Neut # (Auto) 6500 (8952-7698) /uL Lymph # (Auto) 600 L (9055-3684) /uL [place] # (Auto) 400 (0-900) /uL Eos # (Auto) 0 (0-450) /uL Baso # (Auto) 0 (0-100) /uL Sodium 137 (137-145) mmol/L Potassium 4.0 (3.4-5.1) mmol/L Chloride 105 (98-107) mmol/L Carbon Dioxide 21 L (22-32) mmol/L BUN 17 (7-17) mg/dL Creatinine 0.75 (0.52-1.04) mg/dL Estimated GFR > 60 (>60) mL/min BUN/Creatinine Ratio 22.7 H (6-22) Glucose 115 H (70-100) mg/dL Calcium 9.4 (8.4-10.2) mg/dL Total Bilirubin 1.0 (0.2-1.3) mg/dL AST 24 (14-36) IU/L ALT 20 (<35) IU/L Alkaline Phosphatase 79 (38-126) U/L Total Protein 8.3 H (6.3-8.2) g/dL Albumin 4.8 (3.5-5.0) g/dL Globulin 3.5 (1.7-4.1) g/dL Albumin/Globulin Ratio 1.4 (1.0-2.8) Lipase 33 (23-300) U/L Ur Bilirubin Confirm (Negative) Urine RBC (0-5/HPF) Urine WBC (0-5/HPF) Ur Squamous Epith Cells (0-5/HPF) Urine Bacteria (None) Urine Mucus (Negative) Ur Culture Indicated? Stl C. cayetanensis PCR (Not Detect) Stool Rotavirus (PCR) (Not Detect) Stool Adenovirus (PCR) (Not Detect) Stool Astrovirus (PCR) (Not Detect) Stool Cryptosporidium PCR (Not Detect) Stl E.coli Shiga Tox PCR (Not Detect) St Sh/Enteroin Ecoli PCR (Not Detect) Stool E coli O157 PCR Stl Enterotoxigenic E PCR (Not Detect) Stool EPEC (PCR) (Not Detect) Stl E. histolytica PCR (Not Detect) Stool Giardia Lamblia PCR (Not Detect) Stool Sapovirus (PCR) (Not Detect) Stl P. shigelloides PCR (Not Detect) St Y.enterocolitica PCR (Not Detect) Stool Vibrio (PCR) (Not Detect) Stl Vibrio cholerae PCR (Not Detect) Stl Enteroaggr Ecoli PCR (Not Detect) Stl Norovirus GI/GII PCR (Not Detect) Campylobacter (PCR) (Not Detect) C. difficile Tox (PCR) (Not Detect) SARS-CoV-2 (PCR) Negative (Negative) Influenza A (RT-PCR) Flu a negative (NEGATIVE) Influenza B (RT-PCR) Flu b negative (NEGATIVE) RSV (PCR) Negative (Negative) Salmonella (PCR) (Not Detect) 03/25/22 03/25/22 03/25/22 Range/Units 08:47 08:47 08:50 WBC (4.5-11.0) X10^3/uL RBC (4.0-5.2) X10^6/uL Hgb (12.0-16.0) g/dL Hct (36-46) % MCV (80-100) fL MCH (26-34) PG MCHC (30-36) % RDW (11.6-14.8) % Plt Count (150-400) X10^3/uL Neut % (Auto) (50-75) % Lymph % (Auto) (25-40) % [place] % (Auto) (3-14) % Eos % (Auto) (2-4) % Baso % (Auto) (0-2) % Neut # (Auto) (1843-7910) /uL Lymph # (Auto) (6419-1189) /uL [place] # (Auto) (0-900) /uL Eos # (Auto) (0-450) /uL Baso # (Auto) (0-100) /uL Sodium (137-145) mmol/L Potassium (3.4-5.1) mmol/L Chloride (98-107) mmol/L Carbon Dioxide (22-32) mmol/L BUN (7-17) mg/dL Creatinine (0.52-1.04) mg/dL Estimated GFR (>60) mL/min BUN/Creatinine Ratio (6-22) Glucose (70-100) mg/dL Calcium (8.4-10.2) mg/dL Total Bilirubin (0.2-1.3) mg/dL AST (14-36) IU/L ALT (<35) IU/L Alkaline Phosphatase (38-126) U/L Total Protein (6.3-8.2) g/dL Albumin (3.5-5.0) g/dL Globulin (1.7-4.1) g/dL Albumin/Globulin Ratio (1.0-2.8) Lipase (23-300) U/L Ur Bilirubin Confirm Negative (Negative) Urine RBC None seen (0-5/HPF) Urine WBC 1-5/hpf (0-5/HPF) Ur Squamous Epith Cells 5-10 /hpf H (0-5/HPF) Urine Bacteria Few (2-10) H (None) Urine Mucus 2+ H (Negative) Ur Culture Indicated? Cult not indicated Stl C. cayetanensis PCR Not detected (Not Detect) Stool Rotavirus (PCR) Not detected (Not Detect) Stool Adenovirus (PCR) Not detected (Not Detect) Stool Astrovirus (PCR) Not detected (Not Detect) Stool Cryptosporidium PCR Not detected (Not Detect) Stl E.coli Shiga Tox PCR Not detected (Not Detect) St Sh/Enteroin Ecoli PCR Not detected (Not Detect) Stool E coli O157 PCR Not Reportable Stl Enterotoxigenic E PCR Not detected (Not Detect) Stool EPEC (PCR) Not detected (Not Detect) Stl E. histolytica PCR Not detected (Not Detect) Stool Giardia Lamblia PCR Not detected (Not Detect) Stool Sapovirus (PCR) Not detected (Not Detect) Stl P. shigelloides PCR Not detected (Not Detect) St Y.enterocolitica PCR Not detected (Not Detect) Stool Vibrio (PCR) Not detected (Not Detect) Stl Vibrio cholerae PCR Not detected (Not Detect) Stl Enteroaggr Ecoli PCR Not detected (Not Detect) Stl Norovirus GI/GII PCR Detected H (Not Detect) Campylobacter (PCR) Not detected (Not Detect) C. difficile Tox (PCR) Detected H (Not Detect) SARS-CoV-2 (PCR) (Negative) Influenza A (RT-PCR) (NEGATIVE) Influenza B (RT-PCR) (NEGATIVE) RSV (PCR) (Negative) Salmonella (PCR) Not detected (Not Detect) Point of Care Testing Test Results Negative Urine Dip Bedside Urine Glucose Negative Bedside Urine Bilirubin + 1 Bedside Urine Ketone +/- 5 Urine Specific [place] 1.030 Bedside Urine Occult Blood - Negative Bedside Urine pH 6.0 Bedside Urine Protein +/- 15 Bedside Urine Urobilinogen 0.2 Bedside Urine Nitrite - Negative Bedside Urine Leukocytes - Negative Esterase MDM Narrative Medical decision making narrative: This is a 21-year-old female vomiting and diarrhea with 2nd family member developing similar symptoms. Suspect viral illness. Patient's COVID/influenza RSV swab is negative. Labs do not show major abnormalities. Patient was tachycardic initially has not responded to fluids. A GI panel is pending with plan type with patient if positive. Plan for DC home with Zofran as needed. Return precautions discussed. 11:11am: GI panel shows positive for norovirus as well as C diff. With multiple family member suspect neuro virus is the main cause of her symptoms. She has a 6-month-old who is currently asymptomatic unclear if this could be a source for positive C diff. Confirmatory each eye a testing is pending but will take several days. Discussed with patient offered vancomycin oral she is lactating and recommend incisions were checked and appears appropriate. Discussed with patient I suspect this is likely norovirus and confirmatory testing is pending. Patient offered options for watchful waiting, starting oral antibiotic and patient elects to go ahead and start antibiotic. We discussed the importance of following up with the confirmatory testing as this would change her risk in the future and how she should be treated. Patient requests antibiotic go to [facility] in [place]. All questions answered. Discharge Plan Departure Patient Disposition: Home Clinical Impression: Nausea vomiting and diarrhea Instructions: DI for Vomiting -- Adult Activity Restrictions/Additional Instructions: Your GI panel is pending if you have not heard back about the results by noon today please call the ER at [phone]. You may take Zofran 1 tablet every 6 hours as needed for nausea. This medication is safe while . Prescription sent to [facility] in [place]. Please return for rapidly worsening symptoms, signs of dehydration, passing out, new chest pain or shortness of breath, worsening abdominal, back or flank pain, black or bloody stools or other new or concerning symptoms. Prescriptions: New ondansetron 4 mg tablet,disintegrating 4 mg PO Q6H PRN (Reason: nausea and vomiting) Qty: 10 0RF ondansetron 4 mg tablet,disintegrating 4 mg PO Q6H PRN (Reason: nausea and vomiting) Qty: 10 0RF vancomycin 125 mg capsule 125 mg PO QID 10 Days Qty: 40 0RF No Action (DME) breast pump Device See Rx Instructions .ROUTE .MEDSUPPLY Qty: 1 0RF Rx Instructions: As directed prenat.vits,kolby,[id number] Tablet 1 tab PO DAILY 0RF iron 18 mg tablet 18 mg PO DAILY 0RF Referrals: Simon Hidalgo [Primary Care Provider] - Stand Alone Forms: Work Release Note
[2022-03-25 09:35] LABS: Ictotest Urine Negative (Negative)
[2022-03-25 09:38] LABS: RBC Urine None Seen (0-5/HPF); WBC Urine 1-5/HPF (0-5/HPF)
[2022-03-25 09:39] LABS: Bacteria Urine Few (2-10); Culture Indicated Urine Cult Not Indicated; Mucus Urine 2+ (Negative); Squamous Epithelial Cell Urine 5-10 /HPF (0-5/HPF)
[2022-03-25 10:14] LABS: Campylobacter Not Detected (Not Detect); Cryptosporidium Not Detected (Not Detect); Cyclospora cayetanensis Not Detected (Not Detect); Entamoeba histolytica Not Detected (Not Detect); Enteroaggregative E.coli Not Detected (Not Detect); Enteropathogenic E.coli Not Detected (Not Detect); Enterotoxigenic E.coli It/st Not Detected (Not Detect); Giardia lamblia Not Detected (Not Detect); Plesiomonsa shigelloides Not Detected (Not Detect); Salmonella Not Detected (Not Detect); Shiga-like toxin-prod E.coli Not Detected (Not Detect); Shigella/Enteroinvasive E.coli Not Detected (Not Detect); Vibrio Not Detected (Not Detect); Vibrio cholerae Not Detected (Not Detect); Yersinia enterocolitica Not Detected (Not Detect)
[2022-03-25 10:15] LABS: Adenovirus F 40/41 Not Detected (Not Detect); Astrovirus Not Detected (Not Detect); Clostridium difficile toxin AB Detected (Not Detect); Norovirus GI/GII Detected (Not Detect); Rotavirus A Not Detected (Not Detect); Sapovirus Not Detected (Not Detect)
[2022-03-26 15:52] LABS: C difficie Toxins A and B, EIA Negative (Negative)
== END 2022-03-25 09:35 | disposition home or self-care (01) ==
PROVIDERS: Emergency Provider Emergency Medicine; PCP Student in an Organized Health Care Education/Training Program
DX: R19.7 Diarrhea, unspecified (principal); A04.72 Enterocolitis due to Clostridium difficile, not specified as recurrent; A08.11 Acute gastroenteropathy due to Norwalk agent; R11.2 Nausea with vomiting, unspecified; Z20.822 Contact with and (suspected) exposure to COVID-19
CPT/HCPCS: 0241U; 36415; 80053; 81003; 81015; 81025; 83690; 85025; 87324; 87507; 96361; 96374; 99284; J2405